=== PATIENT | male | born 1980 | race Caucasian/White ===

== ENCOUNTER 2016-08-16 10:10 | Emergency (ER) | payer OTHER ==
[2016-08-16 10:15] VITALS: BP 133/87; PULSE 100; TEMP 99.6; BMI 25.0
[2016-08-16] MEDS ORDERED: IBUPROFEN 600 MG TABLET (FP) PO ONE ×2 (10:54→10:59)
[2016-08-16] MEDS ORDERED: guaiFENesin 600 MG TABLET.ER (FP) PO ONE ×2 (10:55→10:59)
--- NOTE | 2016-08-16 10:57 | PDOC ---
History of Present Illness - General Chief Complaint: Respiratory Stated Complaint: COUGH, SORE THROAT Time Seen by Provider: 08/16/16 10:16 History Source: Patient Exam Limitations: No Limitations - History of Present Illness Initial Comments: 08/16/16 10:55 This is an otherwise healthy 36-year-old male presented to the emergency department with a complaint of upper respiratory infection. Patient states approximately 2 weeks ago he began to have symptoms of an upper respiratory infection including sneezing, coughing, runny nose. His symptoms subsided, he went on a trip to [place] and upon his return he noted recurrence of a cough. Patient states he's been febrile, with a Tmax of 103. He also notes chest tightness. He has not seen his primary care physician for these symptoms. He states his cough is dry, has been using a humidifier with no improvement. He has had no recent international travel. No ill contacts. Eyes PSH: Denies Medications: Multivitamin, vitamin E Social: Denies tobacco use GENERAL/CONSTITUTIONAL: No: fever, chills, weakness, loss of appetite. HEAD, EYES, EARS, NOSE AND THROAT: No: change in vision, ear pain, discharge, sore throat, throat swelling. CARDIOVASCULAR: No: chest pain, lightheadedness, palpitations, syncope RESPIRATORY: Yes: cough No: shortness of breath, wheezing, hemoptysis, stridor. GASTROINTESTINAL: No: nausea, vomiting, diarrhea, abdominal cramping, rectal bleeding, constipation. GENITOURINARY: No: dysuria, hematuria, frequency, urgency, flank pain. MUSCULOSKELETAL: No: back pain, neck pain, joint pain, muscle swelling or pain SKIN: No: lesions, pallor, rash or easy bruising. NEUROLOGIC: No: headache, vertigo, paresthesias, weakness ENDOCRINE: No: unexplained weight gain or loss HEMATOLOGIC/LYMPHATIC: No: anemia, easy bleeding, swelling nodes. GENERAL: The patient is in no acute distress. HEAD: Normal with no signs of trauma. EYES: PERRLA, EOMI, sclera anicteric, conjunctiva clear. ENT: Ears normal, nares patent, oropharynx clear without exudates. Moist mucous membranes. NECK: Normal range of motion, supple without lymphadenopathy, JVD, or masses. LUNGS: Breath sounds equal, clear to auscultation bilaterally. No wheezes, and no crackles. HEART: Regular rate and rhythm, normal S1 and S2 without murmur, rub or gallop. ABDOMEN: Soft, nontender, normoactive bowel sounds. No guarding, no rebound. No masses palpable. EXTREMITIES: Normal range of motion, no edema. No clubbing or cyanosis. No erythema, or tenderness. NEUROLOGICAL: Cranial nerves II through XII grossly intact. Normal speech. No focal neurological deficits. MUSCULOSKELETAL: Back non-tender to palpation, no CVA tenderness SKIN: Warm, Dry, normal turgor, no rashes or lesions noted. 08/17/16 11:57 Past History - Past Medical History Allergies/Adverse Reactions: Allergies Allergy/AdvReac Type Severity Reaction Status Date / Time No Known Allergies Allergy Verified 08/16/16 10:11 Home Medications: Ambulatory Orders Azithromycin [Zithromax 250mg Tablets -] 250 mg PO UTDICT #6 tab 08/16/16 Guaifenesin [Mucinex -] 600 mg PO BID #14 tablet.er 08/16/16 Multivitamins [Tab-A-Vit -] 1 tab PO DAILY 08/16/16 Vitamin E 1 tab PO DAILY 08/16/16 Other medical history: DENIES - Psycho/Social/Smoking Cessation Hx Anxiety: No Suicidal Ideation: No Smoking History: Never smoked Hx Alcohol Use: No Drug/Substance Use Hx: No Substance Use Type: None *Physical Exam - Vital Signs Last Vital Signs Temp Pulse Resp BP Pulse Ox 99.6 F 100 H 20 133/87 97 08/16/16 10:10 08/16/16 10:10 08/16/16 10:10 08/16/16 10:10 08/16/16 10:10 ED Treatment Course - RADIOLOGY Radiology Studies Ordered: Category Date Time Status CHEST PA & LAT [RAD] Stat Radiology 08/16/16 10:50 Ordered Medical Decision Making - Medical Decision Making 08/16/16 10:56 DD: URI, pneumonia, Pt has had symptoms for the past 2 weeks Will not send influenza swab Will do: CXR Cristina Ponceisin Will reassess 08/16/16 11:44 CXR does not show consolidation Will discharge on Azithromycin Follow up with PMD Antipyretics 08/16/16 11:46 *DC/Admit/Observation/Transfer Diagnosis at time of Disposition: Upper respiratory infection Qualifiers: URI type: unspecified viral URI Qualified Code(s): J06.9 - Acute upper respiratory infection, unspecified - Discharge Dispostion Disposition: HOME Condition at time of disposition: Improved Admit: No - Prescriptions Prescriptions: Guaifenesin [Mucinex -] 600 mg PO BID #14 tablet.er Azithromycin [Zithromax 250mg Tablets -] 250 mg PO UTDICT #6 tab - Referrals Referrals: Corrine Zapata MD [Primary Care Provider] - - Patient Instructions Printed Discharge Instructions: DI for Viral Upper Respiratory Infection -- Adult Additional Instructions: Return to the emergency department immediately with ANY new, persistent or worsening symptoms. Continue any medications as previously prescribed by your physician. You should follow up with your primary doctor as soon as possible regarding today's emergency department visit. . Please make sure your doctor reviews the results of your emergency evaluation. Thank you for coming to the [facility] today for your care. It was a pleasure to see you today. Please note that your evaluation is INCOMPLETE until you follow-up with your doctor. - Post Discharge Activity Work/School Note: Back to Work
== END 2016-08-16 12:00 | disposition home or self-care (01) ==
LOC: FER 10:10
DX: J06.9 Acute upper respiratory infection, unspecified (principal); B97.89 Other viral agents as the cause of diseases classified elsewhere
CPT/HCPCS: 71020-TC; 99283-25

== ENCOUNTER 2016-08-24 11:45 | Emergency (ER) | payer OTHER ==
[2016-08-24 12:06] VITALS: BP 106/77; PULSE 65; TEMP 98.3; BMI 25.0
--- NOTE | 2016-08-24 12:13 | PDOC ---
History of Present Illness - General Chief Complaint: Rash Stated Complaint: CHEST/BACK/FACE RASH Time Seen by Provider: 08/24/16 12:02 - History of Present Illness Initial Comments: 08/24/16 12:13 Chief complaint: Rash History of present illness: Patient developed a rash on his upper back and chest approximately 3 days ago, just after finishing a course of azithromycin for respiratory illness. His cough and congestion have resolved. He has no fever , chest pain, or shortness of breath. The rash is not pruritic. He has no history of ALLERGIES to medication, food, or other agents. Review of systems: No chest pain, shortness of breath, abdominal pain, nausea, vomiting, diarrhea, visual or focal neurologic symptoms, unsteadiness of gait, itching, dysuria, genital rash or urethral discharge Past medical history: Healthy female, no significant medical or surgical problems in the past Family history/social history reviewed and noncontributory Physical exam: Alert and oriented 3, well-developed well-nourished, no acute distress, cheerful and cooperative Afebrile, vital signs normal HEENT clear Neck supple without bruit mass or nodes Chest clear with full breath sounds throughout bilaterally. No wheezes rales or rhonchi CV S1 and S2 normal without murmur rub or gallop pulses full and symmetric Abdomen soft nontender without mass or organomegaly Neurological intact Extremities no CCE Skin reveals diffuse maculopapular eruption of the upper back, chest, and upper arms. This is nonpruritic. There is no blistering, diffuse erythema, or other sign of superinfection Impression: Drug eruption Plan: Symptomatic treatment and follow-up if symptoms persist or change. Past History - Past Medical History Allergies/Adverse Reactions: Allergies Allergy/AdvReac Type Severity Reaction Status Date / Time No Known Allergies Allergy Verified 08/16/16 10:11 Home Medications: Ambulatory Orders Azithromycin [Zithromax 250mg Tablets -] 250 mg PO UTDICT #6 tab 08/16/16 Guaifenesin [Mucinex -] 600 mg PO BID #14 tablet.er 08/16/16 Multivitamins [Tab-A-Vit -] 1 tab PO DAILY 08/16/16 Vitamin E 1 tab PO DAILY 08/16/16 - Psycho/Social/Smoking Cessation Hx Anxiety: No Suicidal Ideation: No Smoking History: Never smoked Hx Alcohol Use: No Drug/Substance Use Hx: No Substance Use Type: None *Physical Exam - Vital Signs Last Vital Signs Temp Pulse Resp BP Pulse Ox 98.3 F 65 15 106/77 100 08/24/16 11:52 08/24/16 11:52 08/24/16 11:52 08/24/16 11:52 08/24/16 11:52 *DC/Admit/Observation/Transfer Diagnosis at time of Disposition: Drug eruption - Discharge Dispostion Disposition: HOME Condition at time of disposition: Stable Admit: No - Referrals Referrals: Corrine Zapata MD [Primary Care Provider] - 2 Days - Patient Instructions Printed Discharge Instructions: DI for Hives Additional Instructions: Avoid hot baths or showers. Cool soaks or compresses. Benadryl if itching. Recheck if rash spreads or if there is no improvement 2-3 days
== END 2016-08-24 12:18 | disposition home or self-care (01) ==
LOC: FER 11:45
DX: L27.0 Generalized skin eruption due to drugs and medicaments taken internally (principal)
CPT/HCPCS: 99281-25

== ENCOUNTER 2016-08-27 19:20 | Emergency (ER) | payer OTHER ==
[2016-08-27 19:27] VITALS: BMI 24.2
[2016-08-27 19:30] VITALS: BP 117/85; PULSE 88; TEMP 97.9
--- NOTE | 2016-08-27 19:38 | PDOC ---
History of Present Illness - General History Source: Patient <Daniel Forte - Last Filed: 08/27/16 19:35> - General History Source: Patient Exam Limitations: No Limitations - History of Present Illness Initial Comments: 08/27/16 19:38 The patient is a 36 year old male, with no significant past medical history who presents to the emergency department with 5th left finger laceration occurring today. The patient reports cutting his finger on a brand new knife while doing work. He denies any numbness and tingling in his upper extremities. He reports having his tetanus shot last year. Patient is right hand dominant. He denies fever, chills, headache and dizziness. Allergies: sulfa, azithromycin <Stefan Ribera - Last Filed: 08/27/16 19:39> - General Chief Complaint: Laceration Stated Complaint: LEFT 5TH FINGER LAC Time Seen by Provider: 08/27/16 19:27 Past History - Past Medical History Other medical history: DENIES - Immunization History Immunization Up to Date: Yes - Psycho/Social/Smoking Cessation Hx Anxiety: No Suicidal Ideation: No Smoking History: Never smoked Have you smoked in the past 12 months: No Information on smoking cessation initiated: No Hx Alcohol Use: No Drug/Substance Use Hx: No Substance Use Type: None <ReannaDaniel - Last Filed: 08/27/16 19:35> <Stefan Ribera - Last Filed: 08/27/16 19:39> - Past Medical History Allergies/Adverse Reactions: Allergies Allergy/AdvReac Type Severity Reaction Status Date / Time Sulfa (Sulfonamide Allergy Intermediate Hives Verified 08/27/16 19:22 Antibiotics) azithromycin Allergy Mild Rash Verified 08/27/16 19:22 Home Medications: Ambulatory Orders NK [No Known Home Medication] 08/27/16 Review of Systems - Review of Systems Able to Perform ROS?: Yes Comments:: 08/27/16 19:38 GENERAL/CONSTITUTIONAL: No fever or chills. No weakness. HEAD, EYES, EARS, NOSE AND THROAT: No change in vision. No ear pain or discharge. No sore throat. CARDIOVASCULAR: No chest pain or shortness of breath. RESPIRATORY: No cough, wheezing, or hemoptysis. GASTROINTESTINAL: No nausea, vomiting, diarrhea or constipation. GENITOURINARY: No dysuria, frequency, or change in urination. MUSCULOSKELETAL: Yes: left 5th finger LAC. No joint or muscle swelling or pain. No neck or back pain. SKIN: No rash NEUROLOGIC: No headache, vertigo, loss of consciousness, or change in strength/ sensation. ENDOCRINE: No increased thirst. No abnormal weight change. HEMATOLOGIC/LYMPHATIC: No anemia, easy bleeding, or history of blood clots. ALLERGIC/IMMUNOLOGIC: No hives or skin allergy. <Stefan Ribera - Last Filed: 08/27/16 19:39> *Physical Exam - Vital Signs Last Vital Signs Temp Pulse Resp BP Pulse Ox 97.9 F 88 20 117/85 97 08/27/16 19:21 08/27/16 19:21 08/27/16 19:21 08/27/16 19:21 08/27/16 19:21 - Physical Exam General Appearance: Yes: Nourished, Appropriately Dressed. No: Apparent Distress Extremity: positive: Normal Capillary Refill, Normal Inspection, Normal Range of Motion Integumentary: positive: Normal Color, Other (1 CM SUP LAC LT v FINGER MID PHALLANGE. NTV INTACT) Neurologic: positive: Fully Oriented, Alert, Normal Mood/Affect, Normal Response , Motor Strength 5/5 <Daniel Forte - Last Filed: 08/27/16 19:35> - Vital Signs Last Vital Signs Temp Pulse Resp BP Pulse Ox 97.9 F 88 20 117/85 97 08/27/16 19:21 08/27/16 19:21 08/27/16 19:21 08/27/16 19:21 08/27/16 19:21 <Stefan Ribera - Last Filed: 08/27/16 19:39> Procedures - Laceration/Wound Repair Left Dorsal Finger Wound Length: to 2.5 cm Wound Explored: clean Wound's Depth, Shape: superficial Irrigated w/ Saline: Yes Betadine Prep: No Wound Repaired With: Dermabond Sterile Dressing Applied: Yes Splint Applied: Yes Type of Splint Applied: ALUMINUM <Daniel Forte - Last Filed: 08/27/16 19:35> *DC/Admit/Observation/Transfer <Daniel Forte - Last Filed: 08/27/16 19:35> - Attestations Scribe Attestion: 08/27/16 19:39 Documentation prepared by Stefan Ribera, acting as medical records technician for Daniel Forte MD. <Stefan Riebra - Last Filed: 08/27/16 19:39> Diagnosis at time of Disposition: Laceration of finger Qualifiers: Encounter type: initial encounter Qualified Code(s): S61.219A - Laceration without foreign body of unspecified finger without damage to nail, initial encounter - Discharge Dispostion Disposition: HOME - Patient Instructions Printed Discharge Instructions: DI for Laceration Repair Additional Instructions: KEEP WOUND DRY FOR 48 HOURS. AFTER, REGULAR SOAP AND WATER DO NOT REMOVE STERI-STRIPS. THEY WOULD FALL ON THEIR OWN TYLENOL/MOTRIN IF PAIN ELEVATION RETURN IF BLEEDING, REDNESS, SWELLING, OR SEVERE PAIN SEE YOUR DOCTOR WITHIN 48 HOURS
== END 2016-08-27 19:42 | disposition home or self-care (01) ==
LOC: FER 19:20
PROC: 0HQGXZZ Repair Left Hand Skin, External Approach (ICD-10-PCS; principal; 2016-08-27)
DX: S61.217A Laceration without foreign body of left little finger without damage to nail, initial encounter (principal); W26.0XXA Contact with knife, initial encounter; Y93.89 Activity, other specified; Y92.9 Unspecified place or not applicable; Y99.0 Civilian activity done for income or pay
CPT/HCPCS: 99283-25